=== PATIENT | female | born 1990 | race African-American/Black ===

== ENCOUNTER 2020-09-15 13:15 | Outpatient (CLI) | payer OTHER | END 2020-09-15 13:16 | disposition home or self-care (01) | LOC: CSHMRI 13:15 | PROVIDERS: ATTEND Psychiatry & Neurology Neurology | DX: G40.209 Localization-related (focal) (partial) symptomatic epilepsy and epileptic syndromes with complex partial seizures, not intractable, without status epilepticus (principal) | CPT/HCPCS: 70553 ==